=== PATIENT | male | born 1980 | race Caucasian/White ===

== ENCOUNTER 2019-07-07 14:14 | Inpatient (IN) | payer BC ==
[~2019-07-07] VITALS: Ht 182.9 cm; Wt 102.8 kg
[~2019-07-07 14:14] MED LIST: ALPR0.25 PO
--- NOTE | 2019-07-07 14:48 | PHYS DOC ---
Past Medical History Past Medical History: No Pertinent History Additional Past Medical Histor: ECHO AND HOLTER MONITOR >10 YEARS AGO Past Surgical History: No Surgical History Smoking Status: Current Every Day Smoker Alcohol Use: Heavy Drug Use: None Adult General Chief Complaint Chief Complaint: WITHDRAWL HPI HPI Patient is a 38 year old male with history of alcohol abuse presents with palpitations, tremors, dizziness, blurred vision starting earlier today. Patient last drank 18 pack of beer last evening states he is been binge drinking heavily for the past thing weeks since being furloughed from work. States was last sober for 30 days prior to being sober. Denies history of alcohol withdrawal seizures and DTs. Patient has been return to the past several years. No other acute symptoms or complaints. [] Review of Systems Review of Systems ROS as per HPI All other systems were reviewed and found to be within normal limits, except as documented in this note. Current Medications Current Medications Current Medications Medications (Trade) Dose Ordered Sig/Reji Start Time Stop Time Status Last Admin Dose Admin Clonidine HCl (Catapres) 0.2 mg 1X ONCE 07/07/19 15:15 07/07/19 15:16 DC 07/07/19 15:29 0.2 MG Famotidine (Pepcid Vial) 20 mg 1X ONCE 07/07/19 15:15 07/07/19 15:16 DC 07/07/19 14:57 20 MG Lorazepam (Ativan Inj) 1 mg 1X ONCE 07/07/19 15:15 07/07/19 15:16 DC 07/07/19 15:28 1 MG Magnesium Sulfate 50 ml @ 25 mls/hr 1X ONCE 07/07/19 16:15 07/07/19 18:14 07/07/19 16:27 25 MLS/HR Ondansetron HCl (Zofran) 4 mg 1X ONCE 07/07/19 15:15 07/07/19 15:16 DC 07/07/19 14:56 4 MG Sodium Chloride 1,000 ml @ 1,000 mls/hr 1X ONCE 07/07/19 15:00 07/07/19 15:59 DC 07/07/19 14:55 1,000 MLS/HR Allergies Allergies Allergies Coded Allergies Type Severity Reaction Last Updated Verified No Known Drug Allergies 11/12/15 No Physical Exam Physical Exam Constitutional: Tremulous, anxious, no acute distress, non-toxic appearance. [] HENT: Normocephalic, atraumatic, bilateral external ears normal, oropharynx moist, nose normal. [] Eyes: PERRLA, EOMI, conjunctiva normal. [] Neck: Normal range of motion, no tenderness. [] Cardiovascular:Tachycardic [] Lungs & Thorax: Bilateral breath sounds clear to auscultation. [] Abdomen: Bowel sounds normal, soft, no tenderness. [] Skin: Warm, dry, no erythema, no rash. [] Back: No tenderness. [] Extremities: No tenderness, no edema. [] Neurologic: Alert and oriented X 3, normal motor function, normal sensory function, no focal deficits noted. [] Psychologic: Affect normal, judgement normal, mood normal. [] Current Patient Data Vital Signs Vital Signs Date Time Temp Pulse Resp B/P (MAP) Pulse Ox O2 Delivery O2 Flow Rate FiO2 07/07/19 15:29 115 227/115 07/07/19 14:30 98.4 19 97 Room Air 98.4 Lab Values Laboratory Tests Test 07/07/19 14:30 07/07/19 14:41 Urine Opiates Screen Neg (NEG) Urine Methadone Screen Neg (NEG) Urine Barbiturates Neg (NEG) Urine Phencyclidine Screen Neg (NEG) Urine Amphetamine/Methamphetamine Neg (NEG) Urine Benzodiazepines Screen Neg (NEG) Urine Cocaine Screen Neg (NEG) Urine Cannabinoids Screen Neg (NEG) Urine Ethyl Alcohol Neg (NEG) White Blood Count 7.7 x10^3/uL (4.0-11.0) Red Blood Count 5.22 x10^6/uL (4.30-5.70) Hemoglobin 17.6 g/dL (13.0-17.5) H Hematocrit 49.8 % (39.0-53.0) Mean Corpuscular Volume 95 fL (79-100) Mean Corpuscular Hemoglobin 34 pg (25-35) Mean Corpuscular Hemoglobin Concent 35 g/dL (31-37) Red Cell Distribution Width 12.6 % (11.5-14.5) Platelet Count 242 x10^3/uL (140-400) Neutrophils (%) (Auto) 81 % (31-73) H Lymphocytes (%) (Auto) 12 % (24-48) L Monocytes (%) (Auto) 6 % (0-9) Eosinophils (%) (Auto) 0 % (0-3) Basophils (%) (Auto) 1 % (0-3) Neutrophils # (Auto) 6.3 x10^3/uL (1.8-7.7) Lymphocytes # (Auto) 0.9 x10^3/uL (1.0-4.8) L Monocytes # (Auto) 0.5 x10^3/uL (0.0-1.1) Eosinophils # (Auto) 0.0 x10^3/uL (0.0-0.7) Basophils # (Auto) 0.1 x10^3/uL (0.0-0.2) Sodium Level 127 mmol/L (136-145) L Potassium Level 3.9 mmol/L (3.5-5.1) Chloride Level 90 mmol/L (98-107) L Carbon Dioxide Level 25 mmol/L (21-32) Anion Gap 12 (6-14) Blood Urea Nitrogen 4 mg/dL (8-26) L Creatinine 0.9 mg/dL (0.7-1.3) Estimated GFR (Cockcroft-Gault) 93.9 BUN/Creatinine Ratio 4 (6-20) L Glucose Level 128 mg/dL (70-99) H Calcium Level 9.4 mg/dL (8.5-10.1) Magnesium Level 1.3 mg/dL (1.8-2.4) L Total Bilirubin 0.9 mg/dL (0.2-1.0) Aspartate Amino Transferase (AST) 39 U/L (15-37) H Alanine Aminotransferase (ALT) 49 U/L (16-63) Alkaline Phosphatase 80 U/L (46-116) Total Protein 7.3 g/dL (6.4-8.2) Albumin 3.9 g/dL (3.4-5.0) Albumin/Globulin Ratio 1.1 (1.0-1.7) Ethyl Alcohol Level < 10 mg/dL (0-10) Laboratory Tests 07/07/19 14:41 Laboratory Tests 07/07/19 14:41 EKG EKG [EKG: reviewed] Radiology/Procedures Radiology/Procedures [CT head: no acute findings] Course & Med Decision Making Course & Med Decision Making Pertinent Labs and Imaging studies reviewed. (See chart for details) [Clonidine, Ativan given for blood pressure control. Magnesium replaced. Pressure 160s over 60s on reevaluation. Will admit to the hospitalist service for treatment of daily alcohol withdrawal.] Dilip Disclaimer Dilip Disclaimer This electronic medical record was generated, in whole or in part, using a voice recognition dictation system. Departure Departure Impression: Primary Impression: Alcohol withdrawal Additional Impressions: Accelerated hypertension Hypomagnesemia Disposition: ADMITTED INPATIENT Condition: IMPROVED Referrals: NO PCP (PCP) Problem Qualifiers ROSY HEARD DO Jul 07, 2019 14:48
[2019-07-07 14:54] LABS: BASO # 0.1 x10^3/uL (0.0-0.2); BASO % 1 % (0-3); EOS % 0 % (0-3); HEMATOCRIT 49.8 % (39.0-53.0); HEMOGLOBIN 17.6 g/dL (13.0-17.5); LYMPH # 0.9 x10^3/uL (1.0-4.8); LYMPH % 12 % (24-48); MEAN CORPUSCULAR HEMOGLOBIN 34 pg (25-35); MEAN CORPUSCULAR HGB CONC 35 g/dL (31-37); MEAN CORPUSCULAR VOLUME 95 fL (79-100); MONO # 0.5 x10^3/uL (0.0-1.1); MONO % 6 % (0-9); NEUT # 6.3 x10^3/uL (1.8-7.7); NEUT % 81 % (31-73); PLATELET COUNT 242 x10^3/uL (140-400); RED BLOOD COUNT 5.22 x10^6/uL (4.30-5.70); RED CELL DISTRIBUTION WIDTH 12.6 % (11.5-14.5); WHITE BLOOD COUNT 7.7 x10^3/uL (4.0-11.0)
[2019-07-07] MEDS ORDERED: IV NORMAL SALINE 1000ML BAG 1,000 ML IV ONE (15:00)
[2019-07-07 15:03] LABS: BARBITURATES NEG (NEG); BENZODIAZEPINES NEG (NEG); CANNABINOIDS NEG (NEG); COCAINE NEG (NEG); METHADONE NEG (NEG); OPIATES NEG (NEG); PHENCYCLIDINE NEG (NEG)
[2019-07-07 15:05] LABS: CALCIUM 9.4 mg/dL (8.5-10.1); CREATININE 0.9 mg/dL (0.7-1.3); GFR 93.9; POTASSIUM 3.9 mmol/L (3.5-5.1)
[2019-07-07 15:11] LABS: ALBUMIN 3.9 g/dL (3.4-5.0); ALBUMIN/GLOBULIN RATIO 1.1 (1.0-1.7); MAGNESIUM 1.3 mg/dL (1.8-2.4); TOTAL BILIRUBIN 0.9 mg/dL (0.2-1.0); TOTAL PROTEIN 7.3 g/dL (6.4-8.2)
[2019-07-07 15:12] LABS: AMPHETAMINE/METHAMPHETAMINE NEG (NEG)
[2019-07-07] MEDS ORDERED: cloNIDine HCL 0.1 MG TABLET PO ONE (15:15)
[2019-07-07] MEDS ORDERED: FAMOTIDINE 20 MG/2 ML VIAL IVP ONE (15:15)
[2019-07-07] MEDS ORDERED: ONDANSETRON PF 4 MG/2 ML VIAL. IVP ONE (15:15)
--- NOTE | 2019-07-07 16:00 | RAD ---
CT HEAD WO CONTRAST Indication: Headache, hypertension Exposure: One or more of the following individualized dose reduction techniques were utilized for this examination: 1. Automated exposure control 2. Adjustment of the mA and/or kV according to patient size 3. Use of iterative reconstruction technique. Technique: Standard imaging without intravenous contrast. Comparison: None No evidence of acute intracranial hemorrhage, mass effect, midline shift or abnormal extra-axial fluid collection. Ventricles and sulci are symmetric. Cavanaugh-white matter distinction appears intact. The visualized orbits appear unremarkable. No significant scalp hematoma is identified. The partially visualized sinuses demonstrate minimal mucosal thickening, and no fluid levels. No evidence of acute skull abnormality. IMPRESSION: No evidence of acute intracranial hemorrhage. Electronically signed by: Ramu Peña MD (07/07/2019 3:57 PM) [id number]
[2019-07-07] MEDS ORDERED: MAGNESIUM SULFATE 2GM 50 ML IV ONE (16:15)
[2019-07-07] MEDS ORDERED: IV NORMAL SALINE 1000ML BAG 1,000 ML IV SCH (18:21)
[2019-07-07] MEDS ORDERED: ONDANSETRON PF 4 MG/2 ML VIAL. IV PRN (18:30)
--- NOTE | 2019-07-07 20:14 | EKG ---
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
--- NOTE | 2019-07-07 22:23 | HP ---
ADMIT DATE: 07/07/2019 CHIEF COMPLAINT: Alcohol withdrawal, visual changes and elevated blood pressure. 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 Because of the economy and the COVID-19 situation, he has been laid off. Now, he started drinking heavy. Now he presents with alcohol withdrawal. I discussed the case with ER physician. We are going to admit the patient and give him alcohol withdrawal protocol. PAST MEDICAL HISTORY: Probable alcoholism. ALLERGIES: None. FAMILY HISTORY: Hypertension. SOCIAL HISTORY: He drinks 18 beers a day. He was recently traveled from work, apparently was sober for 30 days prior to being laid off. MEDICATIONS: Reviewed, please refer to the MRAD. REVIEW OF SYSTEMS: GENERAL: No history of weight change, weakness or fevers. SKIN: No bruising, hair changes or rashes. EYES: No blurred, double or loss of vision. NOSE AND THROAT: No history of nosebleeds, hoarseness or sore throat. HEART: No history of palpitations, chest pain or shortness of breath on exertion. LUNGS: Denies cough, hemoptysis, wheezing or shortness of breath. GASTROINTESTINAL: Denies changes in appetite, nausea, vomiting, diarrhea or constipation. GENITOURINARY: No history of frequency, urgency, hesitancy or nocturia. NEUROLOGIC: He complains of shaking. PSYCHIATRIC: No history of panic, anxiety or depression. ENDOCRINE: No history of heat or cold intolerance, polyuria or polydipsia. EXTREMITIES: Denies muscle weakness, joint pain, pain on walking or stiffness. PHYSICAL EXAMINATION: VITALS: Within normal limits and are stable. GENERAL: No apparent distress. Alert and oriented. HEENT: Normal cephalic atraumatic, external auditory canals are patent. EYES: Extraocular muscles are intact, pupils are equally round and reactive to light and accommodation. MUSCULOSKELETAL: Well developed, well nourished, good range of motion. ENDOCRINE: No thyromegaly was palpated. LYMPHATICS: No cervical chain or axillary nodes were noted. HEMATOPOIETIC: No bruising. NECK: Supple, no JVD, no thyromegaly was noted. LUNGS: Clear to auscultation in all lung [place] without rhonchi or wheezing. HEART: RRR, S1, S2 present. Peripheral pulses intact, no obvious murmurs were noted. ABDOMEN: Soft, nontender. Positive bowel sounds no organomegaly, normal bowel sounds. EXTREMITIES: Without any cyanosis, clubbing, or edema. Pedal pulses intact, Homans sign is negative. NEUROLOGIC: He is shaking. PSYCHIATRIC: Normal affect, normal mood. Stable. SKIN: No ulcerations or rashes, good skin turgor, no jaundice. VASCULAR: Good capillary refill, neurovascular bundle appears to be intact. ASSESSMENT AND PLAN: Alcohol withdrawal, visual changes and hypertensive urgency. The patient will be admitted. We will give him alcohol withdrawal protocol, IV fluids, IV benzos and vitamins. Seizure precautions. Home medications, deep venous thrombosis prophylaxis. Full code. He also has hypertensive urgency. We will use IV antihypertensives. Consult Neurology as he is having some visual changes. CHANO OSBORN DO DR: KIAH/linette JOB#: [id number] / [id number]
[2019-07-07 23:00] VITALS: BP 161/106
[2019-07-08] VITALS (8 sets, daily range): BP systolic 141–186; BP diastolic 73–120
[2019-07-08] MEDS ORDERED: hydrALAZINE 20 MG/ML VIAL. IVP PRN (08:15)
[2019-07-08] MEDS: LISINOPRIL 20 MG TABLET PO SCH (09:51)
--- NOTE | 2019-07-08 11:53 | PDOC ---
PROGRESS NOTES Chief Complaint Chief Complaint ASSESSMENT Acute EtOH withdrawal HTN Hypomag PLAN etoh withdrawal protocol replace mg start lisinopril tele monitoring prn ativan available dvt ppx full code Vitals Vitals Vital Signs Date Time Temp Pulse Resp B/P (MAP) Pulse Ox O2 Delivery O2 Flow Rate FiO2 07/08/19 11:39 97.8 84 16 180/120 (140) 96 Room Air 97.8 Labs LABS Laboratory Tests Test 07/07/19 14:30 07/07/19 14:41 07/08/19 09:45 Urine Opiates Screen Neg (NEG) Urine Methadone Screen Neg (NEG) Urine Barbiturates Neg (NEG) Urine Phencyclidine Screen Neg (NEG) Urine Amphetamine/Methamphetamine Neg (NEG) Urine Benzodiazepines Screen Neg (NEG) Urine Cocaine Screen Neg (NEG) Urine Cannabinoids Screen Neg (NEG) Urine Ethyl Alcohol Neg (NEG) White Blood Count 7.7 x10^3/uL (4.0-11.0) Red Blood Count 5.22 x10^6/uL (4.30-5.70) Hemoglobin 17.6 g/dL (13.0-17.5) Hematocrit 49.8 % (39.0-53.0) Mean Corpuscular Volume 95 fL (79-100) Mean Corpuscular Hemoglobin 34 pg (25-35) Mean Corpuscular Hemoglobin Concent 35 g/dL (31-37) Red Cell Distribution Width 12.6 % (11.5-14.5) Platelet Count 242 x10^3/uL (140-400) Neutrophils (%) (Auto) 81 % (31-73) Lymphocytes (%) (Auto) 12 % (24-48) Monocytes (%) (Auto) 6 % (0-9) Eosinophils (%) (Auto) 0 % (0-3) Basophils (%) (Auto) 1 % (0-3) Neutrophils # (Auto) 6.3 x10^3/uL (1.8-7.7) Lymphocytes # (Auto) 0.9 x10^3/uL (1.0-4.8) Monocytes # (Auto) 0.5 x10^3/uL (0.0-1.1) Eosinophils # (Auto) 0.0 x10^3/uL (0.0-0.7) Basophils # (Auto) 0.1 x10^3/uL (0.0-0.2) Sodium Level 127 mmol/L (136-145) Potassium Level 3.9 mmol/L (3.5-5.1) Chloride Level 90 mmol/L (98-107) Carbon Dioxide Level 25 mmol/L (21-32) Anion Gap 12 (6-14) Blood Urea Nitrogen 4 mg/dL (8-26) Creatinine 0.9 mg/dL (0.7-1.3) Estimated GFR (Cockcroft-Gault) 93.9 BUN/Creatinine Ratio 4 (6-20) Glucose Level 128 mg/dL (70-99) Calcium Level 9.4 mg/dL (8.5-10.1) Magnesium Level 1.3 mg/dL (1.8-2.4) 2.0 mg/dL (1.8-2.4) Total Bilirubin 0.9 mg/dL (0.2-1.0) Aspartate Amino Transf (AST/SGOT) 39 U/L (15-37) Alanine Aminotransferase (ALT/SGPT) 49 U/L (16-63) Alkaline Phosphatase 80 U/L (46-116) Total Protein 7.3 g/dL (6.4-8.2) Albumin 3.9 g/dL (3.4-5.0) Albumin/Globulin Ratio 1.1 (1.0-1.7) Ethyl Alcohol Level < 10 mg/dL (0-10) Assessment and Plan Assessmemt and Plan Problems Medical Problems: (1) Accelerated hypertension Status: Acute (2) Alcohol withdrawal Status: Acute (3) Hypomagnesemia Status: Acute Comment Review of Relevant I have reviewed the following items unique (where applicable) has been applied. Labs Laboratory Tests Test 07/07/19 14:30 07/07/19 14:41 07/08/19 09:45 Urine Opiates Screen Neg (NEG) Urine Methadone Screen Neg (NEG) Urine Barbiturates Neg (NEG) Urine Phencyclidine Screen Neg (NEG) Urine Amphetamine/Methamphetamine Neg (NEG) Urine Benzodiazepines Screen Neg (NEG) Urine Cocaine Screen Neg (NEG) Urine Cannabinoids Screen Neg (NEG) Urine Ethyl Alcohol Neg (NEG) White Blood Count 7.7 x10^3/uL (4.0-11.0) Red Blood Count 5.22 x10^6/uL (4.30-5.70) Hemoglobin 17.6 g/dL (13.0-17.5) Hematocrit 49.8 % (39.0-53.0) Mean Corpuscular Volume 95 fL (79-100) Mean Corpuscular Hemoglobin 34 pg (25-35) Mean Corpuscular Hemoglobin Concent 35 g/dL (31-37) Red Cell Distribution Width 12.6 % (11.5-14.5) Platelet Count 242 x10^3/uL (140-400) Neutrophils (%) (Auto) 81 % (31-73) Lymphocytes (%) (Auto) 12 % (24-48) Monocytes (%) (Auto) 6 % (0-9) Eosinophils (%) (Auto) 0 % (0-3) Basophils (%) (Auto) 1 % (0-3) Neutrophils # (Auto) 6.3 x10^3/uL (1.8-7.7) Lymphocytes # (Auto) 0.9 x10^3/uL (1.0-4.8) Monocytes # (Auto) 0.5 x10^3/uL (0.0-1.1) Eosinophils # (Auto) 0.0 x10^3/uL (0.0-0.7) Basophils # (Auto) 0.1 x10^3/uL (0.0-0.2) Sodium Level 127 mmol/L (136-145) Potassium Level 3.9 mmol/L (3.5-5.1) Chloride Level 90 mmol/L (98-107) Carbon Dioxide Level 25 mmol/L (21-32) Anion Gap 12 (6-14) Blood Urea Nitrogen 4 mg/dL (8-26) Creatinine 0.9 mg/dL (0.7-1.3) Estimated GFR (Cockcroft-Gault) 93.9 BUN/Creatinine Ratio 4 (6-20) Glucose Level 128 mg/dL (70-99) Calcium Level 9.4 mg/dL (8.5-10.1) Magnesium Level 1.3 mg/dL (1.8-2.4) 2.0 mg/dL (1.8-2.4) Total Bilirubin 0.9 mg/dL (0.2-1.0) Aspartate Amino Transf (AST/SGOT) 39 U/L (15-37) Alanine Aminotransferase (ALT/SGPT) 49 U/L (16-63) Alkaline Phosphatase 80 U/L (46-116) Total Protein 7.3 g/dL (6.4-8.2) Albumin 3.9 g/dL (3.4-5.0) Albumin/Globulin Ratio 1.1 (1.0-1.7) Ethyl Alcohol Level < 10 mg/dL (0-10) Laboratory Tests Test 07/07/19 14:30 07/07/19 14:41 07/08/19 09:45 Urine Opiates Screen Neg (NEG) Urine Methadone Screen Neg (NEG) Urine Barbiturates Neg (NEG) Urine Phencyclidine Screen Neg (NEG) Urine Amphetamine/Methamphetamine Neg (NEG) Urine Benzodiazepines Screen Neg (NEG) Urine Cocaine Screen Neg (NEG) Urine Cannabinoids Screen Neg (NEG) Urine Ethyl Alcohol Neg (NEG) White Blood Count 7.7 x10^3/uL (4.0-11.0) Red Blood Count 5.22 x10^6/uL (4.30-5.70) Hemoglobin 17.6 g/dL (13.0-17.5) Hematocrit 49.8 % (39.0-53.0) Mean Corpuscular Volume 95 fL (79-100) Mean Corpuscular Hemoglobin 34 pg (25-35) Mean Corpuscular Hemoglobin Concent 35 g/dL (31-37) Red Cell Distribution Width 12.6 % (11.5-14.5) Platelet Count 242 x10^3/uL (140-400) Neutrophils (%) (Auto) 81 % (31-73) Lymphocytes (%) (Auto) 12 % (24-48) Monocytes (%) (Auto) 6 % (0-9) Eosinophils (%) (Auto) 0 % (0-3) Basophils (%) (Auto) 1 % (0-3) Neutrophils # (Auto) 6.3 x10^3/uL (1.8-7.7) Lymphocytes # (Auto) 0.9 x10^3/uL (1.0-4.8) Monocytes # (Auto) 0.5 x10^3/uL (0.0-1.1) Eosinophils # (Auto) 0.0 x10^3/uL (0.0-0.7) Basophils # (Auto) 0.1 x10^3/uL (0.0-0.2) Sodium Level 127 mmol/L (136-145) Potassium Level 3.9 mmol/L (3.5-5.1) Chloride Level 90 mmol/L (98-107) Carbon Dioxide Level 25 mmol/L (21-32) Anion Gap 12 (6-14) Blood Urea Nitrogen 4 mg/dL (8-26) Creatinine 0.9 mg/dL (0.7-1.3) Estimated GFR (Cockcroft-Gault) 93.9 BUN/Creatinine Ratio 4 (6-20) Glucose Level 128 mg/dL (70-99) Calcium Level 9.4 mg/dL (8.5-10.1) Magnesium Level 1.3 mg/dL (1.8-2.4) 2.0 mg/dL (1.8-2.4) Total Bilirubin 0.9 mg/dL (0.2-1.0) Aspartate Amino Transf (AST/SGOT) 39 U/L (15-37) Alanine Aminotransferase (ALT/SGPT) 49 U/L (16-63) Alkaline Phosphatase 80 U/L (46-116) Total Protein 7.3 g/dL (6.4-8.2) Albumin 3.9 g/dL (3.4-5.0) Albumin/Globulin Ratio 1.1 (1.0-1.7) Ethyl Alcohol Level < 10 mg/dL (0-10) Medications Current Medications Famotidine (Pepcid Vial) 20 mg 1X ONCE IVP Last administered on 07/07/19at 14: 57; Start 07/07/19 at 15:15; Stop 07/07/19 at 15:16; Status DC Lorazepam (Ativan Inj) 1 mg 1X ONCE IVP Last administered on 07/07/19at 14:56; Start 07/07/19 at 15:15; Stop 07/07/19 at 15:16; Status DC Sodium Chloride 1,000 ml @ 1,000 mls/hr 1X ONCE IV Last administered on 07/07/19at 14:55; Start 07/07/19 at 15:00; Stop 07/07/19 at 15:59; Status DC Ondansetron HCl (Zofran) 4 mg 1X ONCE IVP Last administered on 07/07/19at 14:56; Start 07/07/19 at 15:15; Stop 07/07/19 at 15:16; Status DC Lorazepam (Ativan Inj) 1 mg 1X ONCE IVP Last administered on 07/07/19at 15:28; Start 07/07/19 at 15:15; Stop 07/07/19 at 15:16; Status DC Clonidine HCl (Catapres) 0.2 mg 1X ONCE PO Last administered on 07/07/19at 15:29; Start 07/07/19 at 15:15; Stop 07/07/19 at 15:16; Status DC Magnesium Sulfate 50 ml @ 25 mls/hr 1X ONCE IV Last administered on 07/07/19at 16:27; Start 07/07/19 at 16:15; Stop 07/07/19 at 18:14; Status DC Ondansetron HCl (Zofran) 4 mg PRN Q8HRS PRN IV NAUSEA/VOMITING; Start 07/07/19 at 18:30; Stop 07/08/19 at 18:29 Sodium Chloride 1,000 ml @ 125 mls/hr Q8H IV Last administered on 07/07/19at 20:00; Start 07/07/19 at 18:21; Stop 07/08/19 at 09:01; Status DC Hydralazine HCl (Apresoline Inj) 10 mg PRN Q6HRS PRN IVP ELEVATED BP, SEE COMMENTS Last administered on 07/08/19at 08:54; Start 07/08/19 at 08:15 Lisinopril (Prinivil) 20 mg DAILY PO Last administered on 07/08/19at 09:51; Start 07/08/19 at 09:00 Active Scripts Active Xanax (Alprazolam) 0.25 Mg Tablet 0.25 Mg PO PRN Q6HRS PRN Vitals/I & O Vital Sign - Last 24 Hours 07/07/19 07/07/19 07/07/19 07/07/19 14:30 14:41 15:11 15:27 Temp 98.4 98.4 Pulse 126 128 102 100 Resp 19 10 19 18 B/P (MAP) 232/132 (165) 235/108 (150) 214/103 (140) 227/115 (152) Pulse Ox 97 98 94 93 O2 Delivery Room Air Room Air Room Air Room Air 07/07/19 07/07/19 07/07/19 07/07/19 15:29 15:51 16:21 16:51 Pulse 115 108 102 106 Resp 18 17 19 B/P (MAP) 227/115 203/113 (143) 232/115 (154) 203/128 (153) Pulse Ox 95 95 96 O2 Delivery Room Air Room Air Room Air 07/07/19 07/07/19 07/07/19 07/07/19 17:21 18:21 18:51 23:00 Temp 98.1 98.1 Pulse 96 90 86 80 Resp 13 18 14 18 B/P (MAP) 167/96 (119) 184/124 (144) 196/131 (152) 161/106 (124) Pulse Ox 94 93 95 94 O2 Delivery Room Air Room Air Room Air Room Air 07/08/19 07/08/19 07/08/19 07/08/19 03:00 07:00 08:00 08:54 Temp 98.1 98.3 98.1 98.3 Pulse 88 75 79 Resp 18 16 B/P (MAP) 178/103 (128) 186/115 (138) 210/117 Pulse Ox 97 100 O2 Delivery Room Air Room Air Room Air 07/08/19 07/08/19 09:51 11:39 Temp 97.8 97.8 Pulse 77 84 Resp 16 B/P (MAP) 170/106 180/120 (140) Pulse Ox 96 O2 Delivery Room Air Intake and Output 07/07/19 07/07/19 07/08/19 15:00 23:00 07:00 Intake Total 1050 ml 1100 ml Output Total 200 ml Balance 1050 ml 900 ml CRISSY PLUNKETT MD Jul 08, 2019 11:53
[2019-07-08] MEDS: NICOTINE 21MG PATCH. TD SCH (16:17)
[2019-07-09 02:53] VITALS: BP 143/86
[2019-07-09 07:00] VITALS: BP 176/112
[2019-07-09] MEDS: LISINOPRIL 20 MG TABLET PO SCH (07:38)
[2019-07-09] MEDS: NICOTINE 21MG PATCH. TD SCH (07:42)
--- NOTE | 2019-07-09 10:44 | PDOC ---
PROGRESS NOTES Chief Complaint Chief Complaint DISCHARGE DX Acute EtOH withdrawal HTN, uncontrolled, wants to leave ama Hypomag PLAN etoh withdrawal protocol replace mg start lisinopril tele monitoring prn ativan available dvt ppx full code d/c ama if desires bp control needed D/C PLANNING 30 MIN Vitals Vitals Vital Signs Date Time Temp Pulse Resp B/P (MAP) Pulse Ox O2 Delivery O2 Flow Rate FiO2 07/09/19 07:48 Room Air 07/09/19 07:38 77 176/112 07/09/19 07:00 97.9 18 97 97.9 Physical Exam Physical Exam GENERAL: No apparent distress. Alert and oriented. HEENT: Normal cephalic atraumatic, external auditory canals are patent. EYES: Extraocular muscles are intact, pupils are equally round and reactive to light and accommodation. MUSCULOSKELETAL: Well developed, well nourished, good range of motion. ENDOCRINE: No thyromegaly was palpated. LYMPHATICS: No cervical chain or axillary nodes were noted. HEMATOPOIETIC: No bruising. NECK: Supple, no JVD, no thyromegaly was noted. LUNGS: Clear to auscultation in all lung [place] without rhonchi or wheezing. HEART: RRR, S1, S2 present. Peripheral pulses intact, no obvious murmurs were noted. ABDOMEN: Soft, nontender. Positive bowel sounds no organomegaly, normal bowel sounds. EXTREMITIES: Without any cyanosis, clubbing, or edema. Pedal pulses intact, Homans sign is negative. NEUROLOGIC: He is shaking. PSYCHIATRIC: Normal affect, normal mood. Stable. SKIN: No ulcerations or rashes, good skin turgor, no jaundice. VASCULAR: Good capillary refill, neurovascular bundle appears to be intact. General: Alert, Cooperative, No acute distress, mild distress Heart: Regular rate, Normal S1 Lungs: Clear Abdomen: Normal bowel sounds, Soft, No tenderness Extremities: No cyanosis Skin: No significant lesion Assessment and Plan Assessmemt and Plan Problems Medical Problems: (1) Accelerated hypertension Status: Acute (2) Alcohol withdrawal Status: Acute (3) Hypomagnesemia Status: Acute Comment Review of Relevant I have reviewed the following items unique (where applicable) has been applied. Labs Laboratory Tests Test 07/07/19 14:30 07/07/19 14:41 07/08/19 09:45 Urine Opiates Screen Neg (NEG) Urine Methadone Screen Neg (NEG) Urine Barbiturates Neg (NEG) Urine Phencyclidine Screen Neg (NEG) Urine Amphetamine/Methamphetamine Neg (NEG) Urine Benzodiazepines Screen Neg (NEG) Urine Cocaine Screen Neg (NEG) Urine Cannabinoids Screen Neg (NEG) Urine Ethyl Alcohol Neg (NEG) White Blood Count 7.7 x10^3/uL (4.0-11.0) Red Blood Count 5.22 x10^6/uL (4.30-5.70) Hemoglobin 17.6 g/dL (13.0-17.5) Hematocrit 49.8 % (39.0-53.0) Mean Corpuscular Volume 95 fL (79-100) Mean Corpuscular Hemoglobin 34 pg (25-35) Mean Corpuscular Hemoglobin Concent 35 g/dL (31-37) Red Cell Distribution Width 12.6 % (11.5-14.5) Platelet Count 242 x10^3/uL (140-400) Neutrophils (%) (Auto) 81 % (31-73) Lymphocytes (%) (Auto) 12 % (24-48) Monocytes (%) (Auto) 6 % (0-9) Eosinophils (%) (Auto) 0 % (0-3) Basophils (%) (Auto) 1 % (0-3) Neutrophils # (Auto) 6.3 x10^3/uL (1.8-7.7) Lymphocytes # (Auto) 0.9 x10^3/uL (1.0-4.8) Monocytes # (Auto) 0.5 x10^3/uL (0.0-1.1) Eosinophils # (Auto) 0.0 x10^3/uL (0.0-0.7) Basophils # (Auto) 0.1 x10^3/uL (0.0-0.2) Sodium Level 127 mmol/L (136-145) Potassium Level 3.9 mmol/L (3.5-5.1) Chloride Level 90 mmol/L (98-107) Carbon Dioxide Level 25 mmol/L (21-32) Anion Gap 12 (6-14) Blood Urea Nitrogen 4 mg/dL (8-26) Creatinine 0.9 mg/dL (0.7-1.3) Estimated GFR (Cockcroft-Gault) 93.9 BUN/Creatinine Ratio 4 (6-20) Glucose Level 128 mg/dL (70-99) Calcium Level 9.4 mg/dL (8.5-10.1) Magnesium Level 1.3 mg/dL (1.8-2.4) 2.0 mg/dL (1.8-2.4) Total Bilirubin 0.9 mg/dL (0.2-1.0) Aspartate Amino Transf (AST/SGOT) 39 U/L (15-37) Alanine Aminotransferase (ALT/SGPT) 49 U/L (16-63) Alkaline Phosphatase 80 U/L (46-116) Total Protein 7.3 g/dL (6.4-8.2) Albumin 3.9 g/dL (3.4-5.0) Albumin/Globulin Ratio 1.1 (1.0-1.7) Ethyl Alcohol Level < 10 mg/dL (0-10) Medications Current Medications Famotidine (Pepcid Vial) 20 mg 1X ONCE IVP Last administered on 07/07/19at 14:57; Start 07/07/19 at 15:15; Stop 07/07/19 at 15:16; Status DC Lorazepam (Ativan Inj) 1 mg 1X ONCE IVP Last administered on 07/07/19at 14:56; Start 07/07/19 at 15:15; Stop 07/07/19 at 15:16; Status DC Sodium Chloride 1,000 ml @ 1,000 mls/hr 1X ONCE IV Last administered on 07/07/19at 14:55; Start 07/07/19 at 15:00; Stop 07/07/19 at 15:59; Status DC Ondansetron HCl (Zofran) 4 mg 1X ONCE IVP Last administered on 07/07/19at 14:56; Start 07/07/19 at 15:15; Stop 07/07/19 at 15:16; Status DC Lorazepam (Ativan Inj) 1 mg 1X ONCE IVP Last administered on 07/07/19at 15:28; Start 07/07/19 at 15:15; Stop 07/07/19 at 15:16; Status DC Clonidine HCl (Catapres) 0.2 mg 1X ONCE PO Last administered on 07/07/19at 15:29; Start 07/07/19 at 15:15; Stop 07/07/19 at 15:16; Status DC Magnesium Sulfate 50 ml @ 25 mls/hr 1X ONCE IV Last administered on 07/07/19at 16:27; Start 07/07/19 at 16:15; Stop 07/07/19 at 18:14; Status DC Ondansetron HCl (Zofran) 4 mg PRN Q8HRS PRN IV NAUSEA/VOMITING; Start 07/07/19 at 18:30; Stop 07/08/19 at 18:29; Status DC Sodium Chloride 1,000 ml @ 125 mls/hr Q8H IV Last administered on 07/07/19at 20:00; Start 07/07/19 at 18:21; Stop 07/08/19 at 09:01; Status DC Hydralazine HCl (Apresoline Inj) 10 mg PRN Q6HRS PRN IVP ELEVATED BP, SEE COMMENTS Last administered on 07/08/19at 08:54; Start 07/08/19 at 08:15 Lisinopril (Prinivil) 20 mg DAILY PO Last administered on 07/09/19at 07:38; Start 07/08/19 at 09:00 Nicotine (Nicoderm Cq 21mg) 1 patch DAILY TD Last administered on 07/09/19at 07:42; Start 07/08/19 at 15:30 Active Scripts Active Xanax (Alprazolam) 0.25 Mg Tablet 0.25 Mg PO PRN Q6HRS PRN Vitals/I & O Vital Sign - Last 24 Hours 07/08/19 07/08/19 07/08/19 07/08/19 11:39 12:27 12:57 15:00 Temp 97.8 98.6 97.8 98.6 Pulse 84 75 Resp 16 18 B/P (MAP) 180/120 (140) 162/105 (124) 141/84 (103) 174/110 (131) Pulse Ox 96 96 O2 Delivery Room Air Room Air 07/08/19 07/08/19 07/08/19 07/09/19 19:32 20:00 22:45 02:53 Temp 98.9 98.1 98.2 98.9 98.1 98.2 Pulse 74 73 69 Resp 18 18 18 B/P (MAP) 143/73 (96) 151/87 (108) 143/86 (105) Pulse Ox 96 97 97 O2 Delivery Room Air Room Air Room Air Room Air 07/09/19 07/09/19 07/09/19 07:00 07:38 07:48 Temp 97.9 97.9 Pulse 78 77 Resp 18 B/P (MAP) 176/112 (133) 176/112 Pulse Ox 97 O2 Delivery Room Air Room Air Intake and Output 07/08/19 07/08/19 07/09/19 15:00 23:00 07:00 Intake Total 1700 ml 200 ml Balance 1700 ml 200 ml MARCO STEPHENS MD Jul 09, 2019 10:44
[2019-07-09 11:00] VITALS: BP 181/109
[2019-07-09] MEDS ORDERED: LISI-130 PO (11:36)
[2019-07-09] MEDS ORDERED: METO-239 PO (11:36)
--- NOTE | 2019-07-09 11:37 | DISCH ---
DISCHARGE INSTRUCTIONS Condition on Discharge Condition on Discharge: Guarded Activity After Discharge Activity Instructions for Disc: Avoid exertion Lifting Instructions after Dis: No heavy lifting, No pulling or pushing Driving Instructions after Dis: Do not drive Diet after Discharge Diet after Discharge: Cardiac Checks after Discharge Checks after discharge: Check blood press - daily Contacting the DR. after DC Call your doctor for: If your condition worsens MARCO STEPHENS MD Jul 09, 2019 11:37
--- NOTE | 2019-07-09 11:40 | PDOC3 ---
Discharge Summary Date of Admission: Jul 07, 2019 Date of Discharge: Jul 09, 2019 Follow-Up: 1-2 days Admitting Diagnosis comment: DISCHARGE DX Acute EtOH withdrawal HTN, uncontrolled, wants to leave ama Hypomag PLAN etoh withdrawal protocol replace mg start lisinopril tele monitoring prn ativan available dvt ppx full code d/c ama if desires DESIRES TO LEAVE AMA bp control needed D/C PLANNING 30 MIN, GUARDED PROGNOSIS Vitals Vitals Vital Signs Date Time Temp Pulse Resp B/P (MAP) Pulse Ox O2 Delivery O2 Flow Rate FiO2 07/09/19 07:48 Room Air 07/09/19 07:38 77 176/112 07/09/19 07:00 97.9 18 97 97.9 Physical Exam Physical Exam GENERAL: No apparent distress. Alert and oriented. HEENT: Normal cephalic atraumatic, external auditory canals are patent. EYES: Extraocular muscles are intact, pupils are equally round and reactive to light and accommodation. MUSCULOSKELETAL: Well developed, well nourished, good range of motion. ENDOCRINE: No thyromegaly was palpated. LYMPHATICS: No cervical chain or axillary nodes were noted. HEMATOPOIETIC: No bruising. NECK: Supple, no JVD, no thyromegaly was noted. LUNGS: Clear to auscultation in all lung [place] without rhonchi or wheezing. HEART: RRR, S1, S2 present. Peripheral pulses intact, no obvious murmurs were noted. ABDOMEN: Soft, nontender. Positive bowel sounds no organomegaly, normal bowel sounds. EXTREMITIES: Without any cyanosis, clubbing, or edema. Pedal pulses intact, Homans sign is negative. NEUROLOGIC: He is shaking. PSYCHIATRIC: Normal affect, normal mood. Stable. SKIN: No ulcerations or rashes, good skin turgor, no jaundice. VASCULAR: Good capillary refill, neurovascular bundle appears to be intact. General: Alert, Cooperative, No acute distress, mild distress Heart: Regular rate, Normal S1 Lungs: Clear Abdomen: Normal bowel sounds, Soft, No tenderness Extremities: No cyanosis Skin: No significant lesion FINAL DIAGNOSIS Problems Medical Problems: (1) Accelerated hypertension Status: Acute (2) Alcohol withdrawal Status: Acute (3) Hypomagnesemia Status: Acute Brief Hospital Course Mr. Elena is a 38 old [sex] who presented with [ALCOHOL WITHDRAWAL, HTN ] Discharge Medications Current Medications Famotidine (Pepcid Vial) 20 mg 1X ONCE IVP Last administered on 07/07/19at 14:57; Start 07/07/19 at 15:15; Stop 07/07/19 at 15:16; Status DC Lorazepam (Ativan Inj) 1 mg 1X ONCE IVP Last administered on 07/07/19at 14:56; Start 07/07/19 at 15:15; Stop 07/07/19 at 15:16; Status DC Sodium Chloride 1,000 ml @ 1,000 mls/hr 1X ONCE IV Last administered on 07/07/19at 14:55; Start 07/07/19 at 15:00; Stop 07/07/19 at 15:59; Status DC Ondansetron HCl (Zofran) 4 mg 1X ONCE IVP Last administered on 07/07/19at 14:56; Start 07/07/19 at 15:15; Stop 07/07/19 at 15:16; Status DC Lorazepam (Ativan Inj) 1 mg 1X ONCE IVP Last administered on 07/07/19at 15:28; Start 07/07/19 at 15:15; Stop 07/07/19 at 15:16; Status DC Clonidine HCl (Catapres) 0.2 mg 1X ONCE PO Last administered on 07/07/19at 15:29; Start 07/07/19 at 15:15; Stop 07/07/19 at 15:16; Status DC Magnesium Sulfate 50 ml @ 25 mls/hr 1X ONCE IV Last administered on 07/07/19at 16:27; Start 07/07/19 at 16:15; Stop 07/07/19 at 18:14; Status DC Ondansetron HCl (Zofran) 4 mg PRN Q8HRS PRN IV NAUSEA/VOMITING; Start 07/07/19 at 18:30; Stop 07/08/19 at 18:29; Status DC Sodium Chloride 1,000 ml @ 125 mls/hr Q8H IV Last administered on 07/07/19at 20:00; Start 07/07/19 at 18:21; Stop 07/08/19 at 09:01; Status DC Hydralazine HCl (Apresoline Inj) 10 mg PRN Q6HRS PRN IVP ELEVATED BP, SEE COMMENTS Last administered on 07/08/19at 08:54; Start 07/08/19 at 08:15 Lisinopril (Prinivil) 20 mg DAILY PO Last administered on 07/09/19at 07:38; Start 07/08/19 at 09:00 Nicotine (Nicoderm Cq 21mg) 1 patch DAILY TD Last administered on 07/09/19at 07:42; Start 07/08/19 at 15:30 Metoprolol Succinate (Toprol Xl) 25 mg DAILY PO ; Start 07/09/19 at 11:45; Status UNV Active Scripts Active Metoprolol Succinate ( Xl ) (Metoprolol Succinate) 25 Mg Tab.er.24h 1 Tab PO DAILY Lisinopril 40 Mg Tablet 20 Mg PO DAILY 30 Days Vital Signs Vital Signs Date Time Temp Pulse Resp B/P (MAP) Pulse Ox O2 Delivery O2 Flow Rate FiO2 07/09/19 07:48 Room Air 07/09/19 07:38 77 176/112 07/09/19 07:00 97.9 18 97 97.9 Labs Laboratory Tests Test 07/07/19 14:30 07/07/19 14:41 07/08/19 09:45 Urine Opiates Screen Neg (NEG) Urine Methadone Screen Neg (NEG) Urine Barbiturates Neg (NEG) Urine Phencyclidine Screen Neg (NEG) Urine Amphetamine/Methamphetamine Neg (NEG) Urine Benzodiazepines Screen Neg (NEG) Urine Cocaine Screen Neg (NEG) Urine Cannabinoids Screen Neg (NEG) Urine Ethyl Alcohol Neg (NEG) White Blood Count 7.7 x10^3/uL (4.0-11.0) Red Blood Count 5.22 x10^6/uL (4.30-5.70) Hemoglobin 17.6 g/dL (13.0-17.5) Hematocrit 49.8 % (39.0-53.0) Mean Corpuscular Volume 95 fL (79-100) Mean Corpuscular Hemoglobin 34 pg (25-35) Mean Corpuscular Hemoglobin Concent 35 g/dL (31-37) Red Cell Distribution Width 12.6 % (11.5-14.5) Platelet Count 242 x10^3/uL (140-400) Neutrophils (%) (Auto) 81 % (31-73) Lymphocytes (%) (Auto) 12 % (24-48) Monocytes (%) (Auto) 6 % (0-9) Eosinophils (%) (Auto) 0 % (0-3) Basophils (%) (Auto) 1 % (0-3) Neutrophils # (Auto) 6.3 x10^3/uL (1.8-7.7) Lymphocytes # (Auto) 0.9 x10^3/uL (1.0-4.8) Monocytes # (Auto) 0.5 x10^3/uL (0.0-1.1) Eosinophils # (Auto) 0.0 x10^3/uL (0.0-0.7) Basophils # (Auto) 0.1 x10^3/uL (0.0-0.2) Sodium Level 127 mmol/L (136-145) Potassium Level 3.9 mmol/L (3.5-5.1) Chloride Level 90 mmol/L (98-107) Carbon Dioxide Level 25 mmol/L (21-32) Anion Gap 12 (6-14) Blood Urea Nitrogen 4 mg/dL (8-26) Creatinine 0.9 mg/dL (0.7-1.3) Estimated GFR (Cockcroft-Gault) 93.9 BUN/Creatinine Ratio 4 (6-20) Glucose Level 128 mg/dL (70-99) Calcium Level 9.4 mg/dL (8.5-10.1) Magnesium Level 1.3 mg/dL (1.8-2.4) 2.0 mg/dL (1.8-2.4) Total Bilirubin 0.9 mg/dL (0.2-1.0) Aspartate Amino Transf (AST/SGOT) 39 U/L (15-37) Alanine Aminotransferase (ALT/SGPT) 49 U/L (16-63) Alkaline Phosphatase 80 U/L (46-116) Total Protein 7.3 g/dL (6.4-8.2) Albumin 3.9 g/dL (3.4-5.0) Albumin/Globulin Ratio 1.1 (1.0-1.7) Ethyl Alcohol Level < 10 mg/dL (0-10) Allergies Allergies Coded Allergies Type Severity Reaction Last Updated Verified No Known Drug Allergies 11/12/15 No Disposition/Orders: D/C to Home MARCO STEPHENS MD Jul 09, 2019 11:40
[2019-07-09] MEDS ORDERED: METOPROLOL SUCC 24HR ER 25 MG TAB.ER.24H. PO SCH (11:45)
[2019-07-09 15:00] VITALS: BP 174/102
== END 2019-07-09 15:39 | disposition home or self-care (01) | DRG 305 ==
LOC: ER 14:14 → ED HOLD 16:20 → 2 SOUTH 19:27
PROVIDERS: ADMIT Internal Medicine; ATTEND Internal Medicine
DX: I16.0 Hypertensive urgency (principal); F10.239 Alcohol dependence with withdrawal, unspecified; E83.42 Hypomagnesemia; I10 Essential (primary) hypertension; Z87.891 Personal history of nicotine dependence; Z82.49 Family history of ischemic heart disease and other diseases of the circulatory system
CPT/HCPCS: 36415; 70450; 80053; 80307; 83735; 85025; 93005; 96361; 96365; 96375; 96376; 99285; G0480; J0360; J2060; J2405; J3475; J3490; J7030; G0378

== ENCOUNTER 2019-08-31 18:10 | Emergency (ER) | payer BC ==
[~2019-08-31] VITALS: Ht 175.3 cm; Wt 115.0 kg
[2019-08-31 18:10] VITALS: BP 133/78
[~2019-08-31 18:10] MED LIST changes: +LISI-130 PO; +METO-239 PO
--- NOTE | 2019-08-31 18:20 | PHYS DOC ---
Past Medical History Past Medical History: Hypertension Past Surgical History: No Surgical History Smoking Status: Current Every Day Smoker Alcohol Use: Heavy Drug Use: None General Adult EDM: Chief Complaint: chest pain HPI: HPI: Patient is a 38 year old male who presents in police custody via EMS for evalu ation of chest pain. Patient apparently had been under arrest for public intoxication. He told the officers that he had chest pain so he was brought to the hospital for evaluation. Patient states he said chest pain for "5 years" on arrival. He also states he had recent stress. He is complains of some mild generalized weakness and minimal shortness of air. Patient states he is a history of hypertension. Patient was lucid and able answer basic questions. Patient states he smokes does drink heavily daily. Patient was given an aspirin and nitroglycerin prior to arrival. His pain was unaffected by those medications. Review of Systems: Review of Systems: Constitutional: Denies fever or chills. [] Eyes: Denies change in visual acuity. [] HENT: Denies nasal congestion or sore throat. [] Respiratory: Denies cough or shortness of breath. [] Cardiovascular: has chest pain no edema. [] GI: Denies abdominal pain, nausea, vomiting, bloody stools or diarrhea. [] : Denies dysuria. [] Musculoskeletal: Denies back pain or joint pain. [] Integument: Denies rash. [] Neurologic: Denies headache, focal weakness or sensory changes. [] Endocrine: Denies polyuria or polydipsia. [] Lymphatic: Denies swollen glands. [] Psychiatric: Denies depression or anxiety. [] Heart Score: HEART Score for Chest Pain: HEART Score for Chest Pain Response (Comments) Value History Slighlty/Non-Suspicious 0 ECG Nonspecific Repolarizatio 1 Age < 45 0 Risk Factors 1 or 2 Risk Factors 1 Troponin < Normal Limit 0 Total 2 Risk Factors: Risk Factors: DM, Current or recent (<one month) smoker, HTN, HLP, family history of CAD, obesity. Risk Scores: Score 0 - 3: 2.5% MACE over next 6 weeks - Discharge Home Score 4 - 6: 20.3% MACE over next 6 weeks - Admit for Clinical Observation Score 7 - 10: 72.7% MACE over next 6 weeks - Early Invasive Strategies Allergies: Allergies: Allergies Coded Allergies Type Severity Reaction Last Updated Verified No Known Drug Allergies 11/12/15 No Physical Exam: PE: Constitutional: Well developed, well nourished, mild acute distress, non-toxic appearance. [] HENT: Normocephalic, atraumatic, bilateral external ears normal, oropharynx moist, no oral exudates, nose normal. [] Eyes: PERRLA, EOMI, conjunctiva normal, no discharge. [] Neck: Normal range of motion, no tenderness, supple, no stridor. [] Cardiovascular:Heart rate regular rhythm, no murmur [] Lungs & Thorax: Bilateral breath sounds clear to auscultation [] Abdomen: Bowel sounds normal, soft, no tenderness, no masses, no pulsatile masses. [] Skin: Warm, dry, no erythema, no rash. [] Back: No tenderness. [] Extremities: No tenderness, no cyanosis, no clubbing, ROM intact, no edema. [] Neurologic: Alert and oriented, normal motor function, normal sensory function, no focal deficits noted. [] Psychologic: anxious Affect, poor judgement, mood abnormal. Not suicidal or homicidal [] Current Patient Data: Labs: Laboratory Tests Test 08/31/19 18:18 White Blood Count 7.0 x10^3/uL Red Blood Count 4.63 x10^6/uL Hemoglobin 15.9 g/dL Hematocrit 45.3 % Mean Corpuscular Volume 98 fL Mean Corpuscular Hemoglobin 34 pg Mean Corpuscular Hemoglobin Concent 35 g/dL Red Cell Distribution Width 12.9 % Platelet Count 269 x10^3/uL Neutrophils (%) (Auto) 40 % Lymphocytes (%) (Auto) 45 % Monocytes (%) (Auto) 9 % Eosinophils (%) (Auto) 5 % Basophils (%) (Auto) 1 % Neutrophils # (Auto) 2.8 x10^3/uL Lymphocytes # (Auto) 3.1 x10^3/uL Monocytes # (Auto) 0.6 x10^3/uL Eosinophils # (Auto) 0.3 x10^3/uL Basophils # (Auto) 0.1 x10^3/uL Sodium Level 137 mmol/L Potassium Level 3.9 mmol/L Chloride Level 102 mmol/L Carbon Dioxide Level 23 mmol/L Anion Gap 12 Blood Urea Nitrogen 6 mg/dL Creatinine 1.0 mg/dL Estimated GFR (Cockcroft-Gault) 83.2 BUN/Creatinine Ratio 6 Glucose Level 95 mg/dL Calcium Level 8.3 mg/dL Total Bilirubin 0.2 mg/dL Aspartate Amino Transf (AST/SGOT) 42 U/L Alanine Aminotransferase (ALT/SGPT) 47 U/L Alkaline Phosphatase 74 U/L Troponin I Quantitative < 0.017 ng/mL Total Protein 7.0 g/dL Albumin 3.6 g/dL Albumin/Globulin Ratio 1.1 Lipase 120 U/L Current Medications Medications (Trade) Dose Ordered Sig/Reji Route PRN Reason Start Time Stop Time Status Last Admin Dose Admin Sodium Chloride (Normal Saline Flush) 10 ml QSHIFT PRN IV AFTER MEDS AND BLOOD DRAWS 08/31/19 18:30 EKG: EKG: EKG read at 181 shows sinus tachy rate 112, leftward axis, right bundle branch block, not STEMI [] Radiology/Procedures: Radiology/Procedures: [] Course & Med Decision Making: Course & Med Decision Making Pertinent Labs and Imaging studies reviewed. (See chart for details) [] Dragon Disclaimer: Dragon Disclaimer: This electronic medical record was generated, in whole or in part, using a voice recognition dictation system. 1918 patient has decided to leave AGAINST MEDICAL ADVICE. He was advised that leaving against medical advice could result in or disability. Furthermore he refused his checks x-ray. Patient's EKG and blood work were unremarkable. His troponin was negative. Patient had been in police custody but the officers have left so now he wants to leave against advice. Departure Departure Impression: Primary Impression: Chest pain Additional Impression: Alcohol abuse Disposition: 07 AGAINST MEDICAL ADVICE Condition: STABLE Referrals: NO PCP (PCP) Patient Instructions: Alcohol Problems, Chest Pain (Nonspecific) Additional Instructions: You have left AGAINST MEDICAL ADVICE, returned if your symptoms worsen or persist or you change her mind Justicifation of Admission Dx: Justifications for Admission: Justification of Admission Dx: N/A JASMINA FERRARO DO Aug 31, 2019 18:19
[2019-08-31] MEDS ORDERED: 0.9 % SODIUM CHLORIDE 10 ML DISP.SYRIN. IV PRN (18:30)
[2019-08-31 18:51] LABS: BASO # 0.1 x10^3/uL (0.0-0.2); BASO % 1 % (0-3); EOS # 0.3 x10^3/uL (0.0-0.7); EOS % 5 % (0-3); HEMATOCRIT 45.3 % (39.0-53.0); HEMOGLOBIN 15.9 g/dL (13.0-17.5); LYMPH # 3.1 x10^3/uL (1.0-4.8); LYMPH % 45 % (24-48); MEAN CORPUSCULAR HEMOGLOBIN 34 pg (25-35); MEAN CORPUSCULAR HGB CONC 35 g/dL (31-37); MEAN CORPUSCULAR VOLUME 98 fL (79-100); MONO # 0.6 x10^3/uL (0.0-1.1); MONO % 9 % (0-9); NEUT # 2.8 x10^3/uL (1.8-7.7); NEUT % 40 % (31-73); PLATELET COUNT 269 x10^3/uL (140-400); RED BLOOD COUNT 4.63 x10^6/uL (4.30-5.70); RED CELL DISTRIBUTION WIDTH 12.9 % (11.5-14.5)
[2019-08-31 18:56] LABS: CALCIUM 8.3 mg/dL (8.5-10.1); GFR 83.2; POTASSIUM 3.9 mmol/L (3.5-5.1)
[2019-08-31 19:01] LABS: ALBUMIN 3.6 g/dL (3.4-5.0); ALBUMIN/GLOBULIN RATIO 1.1 (1.0-1.7); TOTAL BILIRUBIN 0.2 mg/dL (0.2-1.0)
--- NOTE | 2019-09-01 05:53 | EKG ---
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
== END 2019-08-31 19:22 | disposition left against medical advice (07) ==
LOC: ER 18:10
DX: R07.89 Other chest pain (principal); F10.229 Alcohol dependence with intoxication, unspecified; Y90.9 Presence of alcohol in blood, level not specified; R53.1 Weakness; I10 Essential (primary) hypertension; F17.200 Nicotine dependence, unspecified, uncomplicated
CPT/HCPCS: 36415; 80053; 83690; 84484; 85025; 93005; 99284